=== PATIENT | female | born 1965 | race African-American/Black ===

== ENCOUNTER 2024-10-15 14:24 | Emergency (ER) | payer MEDICAID ==
[~2024-10-15] VITALS: Ht 167.6 cm; Wt 77.0 kg
[2024-10-15 14:41] VITALS: O2SAT 100
[2024-10-15] MEDS: KETOROLAC 30MG/ML VIAL IM STA (18:03)
[2024-10-15 19:44] LABS: BASOPHILS % 0.6 % (0.0-2.0); EOSINOPHILS % 1.5 % (0.0-5.0); HEMOGLOBIN. 11.6 g/dL (12.0-16.0); LYMPHOCYTES % 25.6 % (20.0-50.0); MEAN CORPUSCULAR HEMOGLOBIN 31.7 pg (28.0-32.0); MEAN CORPUSCULAR HGB CONC 33.3 g/dL (31.0-37.0); MEAN CORPUSCULAR VOLUME 95.2 fL (81.0-99.0); MEAN PLATELET VOLUME 10.2 fl (7.4-10.4); MONOCYTES % 9.5 % (2.0-8.0); NEUTROPHILS % 62.8 % (40.0-76.0); PLATELET 129 x1000/uL (130-400); RED BLOOD CELL COUNT 3.68 mill/uL (4.2-5.4)
[2024-10-15 19:45] LABS: CHLORIDE 102 mEq/L (98-107); POTASSIUM 3.2 mEq/L (3.5-5.1); SODIUM 138 mEq/L (136-145)
[2024-10-15 19:46] LABS: CARBON DIOXIDE 26 mEq/L (21-32)
[2024-10-15 19:47] LABS: CALCIUM 9.6 mg/dL (8.7-10.4)
[2024-10-15 19:51] LABS: GLUCOSE 112 mg/dL (70-105)
[2024-10-15 19:52] LABS: UREA NITROGEN BLOOD 8 mg/dL (9-23)
[2024-10-15 19:53] LABS: ALANINE AMINOTRANSFERASE 12 IU/L (10-49); ALBUMIN 4.5 g/dL (3.2-4.8); ASPARTATE AMINOTRANSFERASE 28 IU/L (<34)
[2024-10-15 19:54] LABS: BILIRUBIN DIRECT 0.2 mg/dL (<=3.0); BILIRUBIN TOTAL 0.7 mg/dL (0.1-1.0); PROTEIN TOTAL 7.6 g/dL (6.0-8.3)
[2024-10-15] MEDS: KETOROLAC 30MG/ML VIAL IM SCH (21:56)
[2024-10-15 22:30] VITALS: BP 169/107; PULSE 97; RESP 16; TEMP 36.89184; O2SAT 99
== END 2024-10-15 22:33 | disposition home or self-care (01) ==
LOC: ER 14:32
DX: B34.9 Viral infection, unspecified (principal); I10 Essential (primary) hypertension; Z20.822 Contact with and (suspected) exposure to COVID-19
CPT/HCPCS: 80076; 80048; 83690; 85025; 87804 ×2; 36415; 71045; 96372; 99284; 87426; J1885; Z7610